=== PATIENT | female | born 1955 | race Caucasian/White ===

== ENCOUNTER 2021-12-23 06:42 | Day surgery (SDC) | payer MEDICARE, MEDICAID ==
[2021-12-23] MEDS ORDERED: Propofol 200 MG/20 ML SDV ONE ×2 (07:21→08:20)
[2021-12-23] MEDS ORDERED: Lidocaine 1% 2 ML ONE (07:21)
[2021-12-23] MEDS ORDERED: Lactated Ringers 1,000 ML IV SCH (07:30)
[2021-12-23] MEDS ORDERED: fentaNYL 100 MCG/2 ML SDV ONE (07:40)
[2021-12-23] MEDS ORDERED: Phenylephrine HCl In 0.9% NaCl 1 MG/10 ML Vial ONE (08:08)
[2021-12-23] MEDS ORDERED: fentaNYL 100 MCG/2 ML SDV IVPUSH PRN (21:59)
[2021-12-23] MEDS ORDERED: Ondansetron 4 MG/2 ML SDV IVPUSH PRN (21:59)
[2021-12-23] MEDS ORDERED: HYDROmorphone 0.5 MG/0.5 ML Syringe IVPUSH PRN (21:59)
== END 2021-12-23 09:10 | disposition home or self-care (01) ==
LOC: JD.SDS 06:42
PROVIDERS: ATTEND Surgery
DX: Z12.11 Encounter for screening for malignant neoplasm of colon (principal); D72.820 Lymphocytosis (symptomatic); D12.5 Benign neoplasm of sigmoid colon; K52.832 Lymphocytic colitis; F17.210 Nicotine dependence, cigarettes, uncomplicated; E78.2 Mixed hyperlipidemia; F31.9 Bipolar disorder, unspecified; Z79.899 Other long term (current) drug therapy; Z88.2 Allergy status to sulfonamides; Z88.0 Allergy status to penicillin
CPT/HCPCS: 45380; J2704; J3010; J7120